=== PATIENT | male | born 1960 | race Caucasian/White ===

== ENCOUNTER 2018-01-04 09:00 | Inpatient (IN) ==
--- NOTE | 2018-01-03 21:11 | Discharge Summary ---
Date of Encounter: 01/04/18 Time of Encounter: 16:31 - Discharge Diagnosis (1) Status post reverse total arthroplasty of right shoulder Priority: Primary Status: Acute Comments: Opsite dressing, leave intact until first post-operative visit. Zipline in place , plan to remove at post-operative day #14-16. If dressing becomes >50% saturated, contact office, remove dressing and place appropriate dressing in its place. Do not allow for dressing to get wet. Shoulder Precautions x 6 weeks. Apply cold therapy wrap 3-6x/day for 20 minutes at a time. Encourage ambulation throughout the day. Use Incentive spirometer 10x/hour. Elevate affected extremity above heart as tolerated. NWB to affected upper extremity x 6 weeks. Will remove brace at first post-operative appointment. OK to remove during PT/ OT and Home exercises. (2) Rotator cuff arthropathy of right shoulder Priority: Primary Status: Acute (3) HTN (hypertension) Priority: Secondary Status: Chronic Qualifiers: Hypertension type: essential hypertension Qualified Code(s): I10 - Essential (primary) hypertension (4) EVON on CPAP Priority: Secondary Status: Chronic (5) Obesity Priority: Secondary Status: Chronic Qualifiers: Obesity type: due to excess calories Obesity classification: adult class 2 (BMI 35 - 39.9) Serious obesity comorbidity presence: unspecified whether serious comorbidity present Body mass index: BMI 36.0-36.9 Qualified Code(s) : E66.09 - Other obesity due to excess calories; Z68.36 - Body mass index (BMI) 36.0-36.9, adult (6) HLD (hyperlipidemia) Priority: Secondary Status: Chronic Qualifiers: Hyperlipidemia type: mixed hyperlipidemia Qualified Code(s): E78.2 - Mixed hyperlipidemia (7) Anxiety Priority: Secondary Status: Chronic - Hospital Course Hospital course: Mr. Lopez is a 57 year old male, status post Right TSR-reverse. Patient had uneventful postoperative course. Stable for discharge. Afebrile, vital signs stable. Vital Signs Temp Pulse Resp BP Pulse Ox 01/04/18 15:07 97.5 F L 71 16 154/81 96 01/04/18 13:43 98.1 F 59 16 144/82 94 01/04/18 13:16 94 01/04/18 13:09 98.1 F 56 16 129/78 94 01/04/18 12:53 97.9 F 52 16 116/74 95 01/04/18 12:30 98.4 F 54 20 117/68 94 01/04/18 12:20 58 20 127/73 93 01/04/18 12:10 59 20 141/44 94 01/04/18 12:00 98.3 F 64 24 137/84 94 01/04/18 10:45 73 190/98 97 01/04/18 10:33 70 201/105 96 01/04/18 09:19 98.6 F 65 18 161/97 97 Intake and Output 01/04/18 01/04/18 01/04/18 07:59 15:59 23:59 Output Total 50 / 50 Balance -50 / -50 Output: Estimated Blood Loss 50 / 50 Other: # Voids 1 Weight 122.924 kg Patient Weight 01/04/18 23:59 Weight 122.924 kg Labs reviewed. H/H - stable, asymptomatic Short CBC 01/04/18 Range/Units 12:31 Hgb 14.8 (12.9-16.9) g/dL Hct 43.4 (37.5-50.1) % Pain control: adequate Participating in OT All questions and concerns addressed. Educated on use of incentive spirometer. Encouraged ambulation and proper hydration. Patient educated on post-operative restrictions and post-operative care. Assessment and plan: Continue with postoperative care Discharge plan: Home , discharge today home with HH. - Time Spent with Patient Total time spent providing and/or coordinating discharge services: - Discharge Medications Home Medications: OxyCODONE Immed Rel [Roxicodone 5 MG] 5 mg PO Q6HR PRN 7 Days #28 tablet [Rx] Atorvastatin Calcium [Lipitor] 20 mg PO HS 01/04/18 [History] FLUoxetine HCl [Prozac] 20 mg PO DAILY 01/04/18 [History] Lisinopril [Zestril] 40 mg PO DAILY 01/04/18 [History] Metoprolol Succinate [Toprol Xl] 25 mg PO DAILY 01/04/18 [History] Allergies/Adverse Reactions: 3 Allergy/AdvReac Type Severity Reaction Status Date / Time No Known Allergies Allergy Verified 01/04/18 09:54 Date of admission: 01/04 Primary care physician: Sandra Barroso Discharging clinician: Zara Dowd Anticipated date of discharge: 01/04/18 - Patient Status Disposition: Home Health Service Condition: Good Functional capacity at discharge: independent ambulation Overall status at discharge: patient is progressing back to baseline - Discharge Instructions Instructions: Shoulder Arthroplasty (DC) Follow Up With: Sandra Barroso DO [Primary Care Provider] - - Diet and Activity Activity: as per physical therapy
--- NOTE | 2018-01-03 21:14 | Physician Discharge Referral ---
<MinnieMary Jo raoZara L - Last Filed: 01/03/18 21:13> Home Health/Hosp Referral Info Transfer to: Home Health - Diagnosis (1) Status post reverse total arthroplasty of right shoulder Priority: Primary Status: Acute (2) Rotator cuff arthropathy of right shoulder Priority: Primary Status: Acute (3) HTN (hypertension) Status: Chronic (4) EVON on CPAP Status: Chronic (5) Obesity Status: Chronic (6) HLD (hyperlipidemia) Status: Chronic (7) Anxiety Status: Chronic - Respiratory Orders None Smoking Cessation: Smoking cessation has been advised. For more information, call the [place] Tobacco Quit Line at 4-147-IDGX-NOW. - Diet/Nutrition Diet/Nutrition Orders: Regular - Activity Activity Orders: Up ad alvina, Ambulate - Services Needed Following services are medically necessary services: Nursing, Home Health Aide, Physical Therapy, Occupational Therapy Home Care Orders: Opsite dressing, leave intact until first post-operative visit. Zipline in place, plan to remove at post-operative day #14-16. If dressing becomes >50% saturated, contact office, remove dressing and place appropriate dressing in its place. Do not allow for dressing to get wet. Shoulder Precautions x 6 weeks. Apply cold therapy wrap 3-6x/day for 20 minutes at a time. Encourage ambulation throughout the day. Use Incentive spirometer 10x/hour. Elevate affected extremity above heart as tolerated. NWB to affected upper extremity x 6 weeks. Will remove brace at first post-operative appointment. OK to remove during PT/ OT and Home exercises. - Transfer Medications Prescriptions: OxyCODONE Immed Rel [Roxicodone 5 MG] 5 mg PO Q6HR PRN 7 Days #28 tablet PRN Reason: Severe Pain Home Medications: OxyCODONE Immed Rel [Roxicodone 5 MG] 5 mg PO Q6HR PRN 7 Days #28 tablet [Rx] Allergies/Adverse Reactions: 3 Allergy/AdvReac Type Severity Reaction Status Date / Time No Known Allergies Allergy Verified 12/28/17 13:41 Certification: Further, I certify that my clinical findings support that this patient is homebound (i.e. absences from home require considerable and taxing effort and are for medical reasons or episcopalian services or infrequently or short duration when for other reasons) because: Homebound Reason: Post-surgery restriction and or conditions limit ability to leave home Attestation: My signature below is to certify that this patient is under my care and that I, or nurse practitioner, or a physician's diver assistant working with me, has a face-to -face encounter with this patient. <Leobardo White - Last Filed: 01/04/18 09:50> - Respiratory Orders Smoking Cessation: Smoking cessation has been advised. For more information, call the [place] Tobacco Quit Line at 6-642-MFXZ-NOW. Certification: Further, I certify that my clinical findings support that this patient is homebound (i.e. absences from home require considerable and taxing effort and are for medical reasons or episcopalian services or infrequently or short duration when for other reasons) because: Attestation: My signature below is to certify that this patient is under my care and that I, or nurse practitioner, or a physician's diver assistant working with me, has a face-to -face encounter with this patient.
--- NOTE | 2018-01-04 09:02 | Anesthesia Evaluation PreOp ---
Date of Encounter: 01/04/18 Time of Encounter: 09:00 - Past History Planned Operation: R total shoulder replacement reverse ball and socket Cardiac History: HTN, Hyperlipidemia Pulmonary History: EVON Dx (on CPAP) [employer] History: Other (anxiety) Other Medical History: Denies Any Significant HX Anesthesia History: No Prior Anesthetic Complications, Past Anesthesia (L rotator cuff repair, back surgery, L knee scope) Alcohol Use: none Drug use: none Medications and Allergies OxyCODONE Immed Rel [Roxicodone 5 MG] 5 mg PO Q6HR PRN 7 Days #28 tablet [Rx] 3 Allergy/AdvReac Type Severity Reaction Status Date / Time No Known Allergies Allergy Verified 12/28/17 13:41 - Meds/Allergy Pre-op Review Medications Reviewed: Yes Allergies Reviewed: Yes Beta Blockers on Current Med List: Yes If Beta Blockers taken, Date/Time (Last Dose taken): 630am today Anesthesia Results - Labs Laboratory Tests 12/28/17 12/28/17 12/28/17 13:41 14:00 14:00 WBC 6.6 Plt Count 215 PT 10.9 INR 1.0 APTT 30.1 Sodium 136 Potassium 4.3 Chloride 105 Carbon Dioxide 27 BUN 15 Creatinine 0.67 L - Imaging EKG: report reviewed (SINUS BRADYCARDIA BORDERLINE LEFT AXIS DEVIATION VOLTAGE CRITERIA FOR LVH Electronically Signed On 12-29-2017 12:53:27 EDT by Ever Saeed) Anesthesia Exam O2 Sat Height 1.85 m Height 1.85 m Weight 122.924 kg Weight 122.924 kg O2 Sat by Pulse Oximetry 97 Vital Signs Temp Pulse Resp BP Pulse Ox 98.6 F 65 18 161/97 97 01/04/18 09:19 01/04/18 09:19 01/04/18 09:19 01/04/18 09:19 01/04/18 09:19 Weight: 122kg NPO (# of Hours): >8 - HEENT Pupil (Motor): Pupils equal, EOMI Mallampati: III Teeth: Normal Oral Opening: Greater than 3 - [employer] LOC: Oriented [employer] Motor: Normal RUE, Normal LUE, Normal RLE, Normal LLE, Normal Face [employer] Sensory: Normal: RUE, LUE, RLE, LLE, Face - Cardiac Rhythm: Regular - Pulmonary Breath Sounds: bilateral Clear Respiratory Effort: Symmetrical Anesthesia Assess/Plan ASA Score: 3 Modified [place] Scale for Level of Consciousness: Cooperative, oriented, and tranquil Anesthetic Plan: General, Regional (R brachial plexus) Monitoring Plan: Standard Monitors Recovery Plan: PACU
[2018-01-04] MEDS ORDERED: Acetaminophen IV 1,000 MG/100 ML INFUS..BTL ONE (09:18)
[2018-01-04] MEDS ORDERED: CeFAZolin Syr 3,000MG/30 ML 3,000 MG/30 ML SYRINGE IVPB ONE (09:29)
[2018-01-04] MEDS ORDERED: Ringers Solution, Lactated 1,000 ML IVC SCH ×2 (09:30→12:30)
--- NOTE | 2018-01-04 09:49 | History & Physical Report ---
Date of Encounter: 01/04/18 Time of Encounter: 09:49 24 Hour HP Update - Instructions Instructions: If the History and Physical is less than 30 days old and was completed prior to A.M. admission and or procedure and has NOT been updated on calendar day of procedure please complete this update prior to performing procedure. - Update Patient reports changes in Medical Condition: No Changes in examination, assessment, or condition: No Changes in Medication: No Preop tests/diagnostics Reviewed: Yes Surgery Remains Indicated: Yes Consent for Planned Operative Procedure(s) Verified: Yes - Pre-Operative Checklist Preoperative Checklist Indicated: No Prophylactic Antibiotic Ordered: Yes Is VTE Prophylaxis Indicated?: Yes
[2018-01-04] MEDS ORDERED: ROPIVACAINE HCL/PF 0.5% 30 ML VIAL ONE (10:14)
[2018-01-04] MEDS ORDERED: Bupivacaine/Clonidine Syringe 1 EACH SYRINGE ONE (10:15)
--- NOTE | 2018-01-04 10:47 | Anesthesia Procedures ---
Date of Encounter: 01/04/18 Time of Encounter: 10:45 Procedures: Anesthesia - Nerve Block Procedure Date: 01/04/18 Time: 10:45 Allergies/Adv Reactions: nkda Pre-op Diagnosis: R shoulder RTC arthropathy Surgical Procedure: R TSR, Reverse Checklist: Correct Patient Identifier, Correct procedure, History checked Correct side: Right Blood Thinner: No Monitor Applied: EKG, BP, Pulse Oximetry Supplemental Oxygen via Nasal Cannula (L/min): 3 Sedation: Versed (mg): 2 Sedation: Fentanyl (mcg): 100 Indication: Post Op Analgesia (requested by Dr. White) Pre-op Neuro Deficits: No Block Type: Supraclavicular, Other (ICB, SCP) Catheter placed: No Sterile Technique: Yes Ultrasound used: Yes Anatomy identified: Yes Visual spread of Local: Yes Neuro Stimulation: No Nerve Stimulator Range: 0.2 - 0.4 mA Blood on Needle Aspiration: No Smooth Injection of Local: Yes Pain with Injection of Local: No Prep: Chlorhexadine Needle: 22 x 50 mm Stimuplex Local: 0.25% Bupivicaine w/Clonidine 20 mcg/cc (7.5mL for SCP; 7.5mL for ICB), Ropivacaine (30mL 0.5% + 4mg dexamethasone for supraclavicular n. block) Number of Attempts: 1 Complications: None/effective block Vitals: please see holding vital signs note Comments: successful on 1st attempt; patient tolerated procedure well; VSS
[2018-01-04] MEDS ORDERED: *HR* OxyCODONE Immed Rel 5 MG TABLET PO PRN ×2 (10:48→12:30)
[2018-01-04] MEDS ORDERED: *HR* Labetalol 20 MG/4 ML SYRINGE IVP PRN (10:48)
[2018-01-04] MEDS ORDERED: *HR* HYDROmorphone 2 MG TABLET PO PRN (10:48)
--- NOTE | 2018-01-04 11:44 | Orthopedic Operative Note ---
Date of procedure: 01/04/18 Pre-op diagnosis: Right shoulder cuff tear arthropathy Post-op diagnosis: same Procedure: Procedure: Total Shoulder Replacment Reverse, right Estimated blood loss: 50 cc Hardware: Metal and polyethylene replacement: Arthrex 28 mm, +2 , 30 mm screw glenoid baseplate, 2 4.5 screws. 2 5.5 screw, 42+4 glenosphere, 9 humeral stem, poly insert 3 and 9 metal Exam Under anesthesia: Full motion no instability Procedural Notes: Irreparable tear supraspinatus tendon. Operative procedure: The patient was brought to the operating room and placed on the operating room table. After general anesthesia was administered the operative shoulder was examined. Findings were noted. The patient was placed in the modified beachchair position. All pressure points were padded appropriately. And the head was stabilized in the neutral position. The operative extremity was prepped and draped in the sterile surgical fashion. The patient received IV antibiotics prior to skin incision. A standard deltopectoral approach was made to the operative shoulder. Incision was made to the skin and subcutaneous tissue,hemo stasis was obtained with Bovie cautery. Using careful blunt dissection the cephalic vein was identified and mobilized medially. The deltopectoral interval was developed and the clavipectoral fascia was incised. The subscap was released off the lesser tuberosity and tagged with #2 FiberWire suture subscap was irreparable. The humerus was dislocated patient noted to have irreparable tear supraspinatus tendon, and the humeral cut was made along the anatomic neck. Anterior and posterior Bankart retractors were placed to expose the glenoid. The glenoid guide was seated and the centering hole was made. It was reamed with the appropriate reamer. The 28 millimeter, +2, 30 mm screw was seated and secured with (2) 4.5 screws and 2 5.5 screw. The baseplate was irrigated and dried and the 42+4 Glenosphere was seated and secured with the Carr taper. The Carr taper was tested and found to be secure the humerus was redislocated and prepared with the diaphyseal reamers, followed by a broaching process up to the appropriate size 9 in the patient's anatomic version. The metaphyseal reamer was then utilized. Trial reduction found the shoulder to be relocatable. Trial components were removed and 9 stem was impacted in place in the patient's anatomic version. Trial reduction found the shoulder to be relocatable and stable with the appropriate 9 metal 3 Jolene Trial component was removed and the real implant was seated and secured the shoulder was reduced. The shoulder had excellent motion and excellent stability and no evidence of dislocation. The deep tissue was irrigated with pulse irrigation. The PA close the shoulder. The deltopectoral interval was closed with a running #1 PDS suture, subcutaneous tissue was irrigated and closed with 0 PDS suture, the skin was closed with Dermabond. The patient was placed in a sterile dressing, abduction brace and extubated. The patient was then transferred to the recovery room in stable condition. Anesthesia: GETA Surgeon: Leobardo White Was there an sourcing assistant present: No Estimated blood loss (cc): 50 Condition: stable Disposition: PACU
[2018-01-04] MEDS ORDERED: Lidocaine -MPF 2% 2 ML VIAL ONE (11:48)
[2018-01-04] MEDS ORDERED: Dexamethasone 4 MG/ML VIAL ONE (11:48)
[2018-01-04] MEDS ORDERED: *HR* Propofol 200 MG/20 ML VIAL IVP ONE (11:48)
[2018-01-04] MEDS ORDERED: *HR* PHENYLEPHRINE 1,000 MCG/10 ML SYRINGE IVP ONE (11:48)
[2018-01-04] MEDS ORDERED: Ondansetron 4 MG/2 ML VIAL ONE (11:48)
[2018-01-04] MEDS ORDERED: *HR* FentaNYL (PF) 100 MCG/2 ML VIAL ONE (11:48)
[2018-01-04] MEDS ORDERED: *HR* Midazolam HCl 2 MG/2 ML VIAL ONE (11:48)
[2018-01-04] MEDS ORDERED: Sennosides 8.6 MG TABLET PO PRN (12:30)
[2018-01-04] MEDS ORDERED: MOM Conc 10 ML UD.LIQ PO PRN (12:30)
[2018-01-04] MEDS ORDERED: Temazepam 15 MG CAPSULE PO PRN (12:30)
[2018-01-04] MEDS ORDERED: Naloxone 0.4 MG/ML INJ IVP PRN (12:30)
[2018-01-04] MEDS ORDERED: Ondansetron 4 MG/2 ML VIAL IVP PRN (12:30)
[2018-01-04] MEDS ORDERED: *HR* OxyCODONE/APAP 5/325 TABLET PO PRN (12:30)
[2018-01-04] MEDS ORDERED: traMADol 50 MG TABLET PO PRN (12:30)
--- NOTE | 2018-01-04 12:40 | Anesthesia Evaluation Post Op ---
Date of Encounter: 01/04/18 Time of Encounter: 12:40 - Vital Signs Vital Signs: Vital Signs/O2 Sat/Glucose, Most Current Temp Pulse Resp BP Pulse Ox 01/04/18 12:30 98.4 F 54 20 117/68 94 01/04/18 12:20 58 20 127/73 93 01/04/18 12:10 59 20 141/44 94 01/04/18 12:00 98.3 F 64 24 137/84 94 01/04/18 10:45 73 190/98 97 01/04/18 10:33 70 201/105 96 01/04/18 09:19 98.6 F 65 18 161/97 97 - Lungs Lungs: Clear Ascult./Percussion - Airway Airway: Non-obstructed - Cardiovascular Regular Rate - Mental Status Mental Status: Alert & Oriented, Answers Appropriately - Pain Pain Scale: 0 - Nausea Vomiting Nausea Vomiting: Not Present - Hydration Hydration: Ice chips, Has not voided
[2018-01-04 12:49] LABS: Hematocrit 43.4 % (37.5-50.1); Hemoglobin 14.8 g/dL (12.9-16.9)
[2018-01-04 15:08] VITALS: BP 154/81
[2018-01-04] MEDS ORDERED: *HR* Enoxaparin 30 MG/0.3 ML SYRINGE SQ SCH ×2 (16:00→18:00)
[2018-01-04] MEDS ORDERED: CeFAZolin Syr 3,000MG/30 ML 3,000 MG/30 ML SYRINGE IVPB SCH (16:00)
[2018-01-05] MEDS ORDERED: Lisinopril 20 MG TABLET PO SCH (09:00)
[2018-01-05] MEDS ORDERED: FLUoxetine 20 MG CAPSULE PO SCH (09:00)
[2018-01-05] MEDS ORDERED: Metoprolol XL (24 HR) Succ 25 MG TAB.ER.24H PO SCH (09:00)
== END 2018-01-04 17:25 | disposition home health service (06) | DRG 483 ==
LOC: SAMDAY 09:00 → 3NENU 13:16
PROVIDERS: ADMIT Orthopaedic Surgery; ATTEND Orthopaedic Surgery